=== PATIENT | male | born 1995 | race Caucasian/White ===

== ENCOUNTER 2024-03-08 07:06 | Emergency (ER) | payer BC, SELFPAY ==
[2024-03-08] VITALS (33 sets, daily range): BP systolic 110–127; BP diastolic 53–74; PULSE 43–108; RESP 11–20; TEMP 36.6; O2SAT 97–100
--- NOTE | 2024-03-08 | ECHO_ITS ---
Patient Info Name: José Kidd Age: 28 years : 1995 Gender: Male Ht: 63 in Wt: 240 lbs BSA: 2.26 m2 HR: 83 bpm BP: 99 / 62 mmHg Heart Rhythm: Bradycardia Technical Quality: Good Exam Date: 03/08/2024 9:49 AM Exam Location: Echo Lab Patient Status: Emergency Admit Date: 03/08/2024 Staff Ordering Physician: Virginia Head MD Bonbon Dipper: Ted Wade RDCS Attending Provider: Virginia Head MD Referring Physician: Adilene ROBLES; Exam Type: CA echo doppler color flow Study Info Indications - BRADYCARDIA Complete two-dimensional, color flow and Doppler transthoracic echocardiogram is performed. Summary 1. Complete two-dimensional, color flow and Doppler transthoracic echocardiogram is performed. 2. Left ventricular chamber dimension is normal. 3. Left ventricular systolic function is normal, estimated at 60-65%. 4. The left ventricular diastolic function is normal. 5. E/e' 5 is not elevated. 6. Left atrial chamber dimension is mildly enlarged. 7. There is trace mitral valve regurgitation. 8. No pulmonary hypertension, estimated pulmonary arterial systolic pressure is 23 mmHg. 9. There is trace pulmonic regurgitation. Left Ventricle E/e' 5 is not elevated. Left ventricular chamber dimension is normal. Left ventricular systolic function is normal, estimated at 60-65%. The left ventricular diastolic function is normal. Right Ventricle Right ventricular systolic function is normal and with normal TAPSE 2.8 cm. Right ventricular chamber dimension is normal. Left Atria Left atrial chamber dimension is mildly enlarged. Right Atria Right atrial chamber dimension is normal. Aortic Valve The aortic valve is trileaflet. There is no aortic valve stenosis. There is no aortic valve regurgitation. Pulmonic Valve There is trace pulmonic regurgitation. Mitral Valve There is no mitral valve stenosis. There is trace mitral valve regurgitation. Tricuspid Valve There is no tricuspid valve regurgitation. No pulmonary hypertension, estimated pulmonary arterial systolic pressure is 23 mmHg. Pericardium/Pleural There is no pericardial effusion. Inferior Vena Cava Normal inferior vena cava with >50% collapse upon inspiration consistent with normal right atrial pressure, 5 mmHg. Aorta The aortic root size at the sinus of Valsalva is normal. Left Ventricular Outflow Tract Name Value Normal LVOT 2D LVOT Diameter 2.1 cm LVOT Doppler LVOT Peak Gradient 7 mmHg LVOT Mean Gradient 4 mmHg LVOT VTI 31 cm LVOT VTI/AV VTI Ratio 0.9 LVOT Stroke Volume 108 ml LVOT CO 7.0 l/min LVOT CI 3.1 l/min/m2 Mitral Valve Name Value Normal MV Doppler MV Decel [place] 388 cm/s2 MV PHT
--- NOTE | ~2024-03-08 | XR_ITS ---
EXAMINATION: XR chest 2V DATE: 03/08/2024 07:31 INDICATION: Syncope. Seizure like activity. TECHNIQUE: AP and lateral views of the chest were obtained. COMPARISON: None FINDINGS: The lungs are clear with no focal airspace opacities, pulmonary edema, pleural effusion or pneumothor ax. The cardiomediastinal silhouette is normal. Visualized bones and soft tissues are unremarkable. IMPRESSION: 1. Normal chest radiograph. Reviewed, dictated and finalized at location A. IMPRESSION: 1. Normal chest radiograph.
--- NOTE | 2024-03-08 07:11 | ECG_ITS ---
Test Date: 2024-03-08 07:18:30 Measurements Intervals [place] Rate: 44 P: 62 SC: 190 QRS: 62 QRSD: 104 T: 57 QT: 447 QTc: 383 Interpretive Statements SINUS BRADYCARDIA WITH MARKED SINUS ARRHYTHMIA POSSIBLE LEFT ATRIAL ENLARGEMENT [-0.1mV P-WAVE IN V1/V2] No previous ECG available for comparison Electronically Signed On 03-08-2024 13:39:33 CDT by Laurie Estrada M.D.
[2024-03-08 07:17] LABS: Basophils Percent Auto 0.4 % (0.2-1.2); Eosinophils Absolute Auto 0.2 K/mm3 (0-0.3); Eosinophils Percent Auto 2.4 % (0-4.4); Hematocrit 44.1 % (42.0-52.0); Hemoglobin 14.3 g/dL (14.0-18.0); Immature Granulocyte Absolute 0.02 K/mm3 (0.00-0.031); Immature Granulocyte Percent A 0.2 % (0-0.5); Lymphocytes Percent Auto 24.3 % (18.3-44.2); Mean Corpuscular HGB Conc 32.4 g/dl (32-36); Mean Corpuscular Volume 92.5 fl (80-100); Mean Platelet Volume 9.1 fl (7.4-10.4); Monocytes Absolute Auto 0.9 K/mm3 (0.1-0.6); Monocytes Percent Auto 11.2 % (2.6-8.5); Neutrophils Absolute Auto 5.1 K/mm3 (1.3-6.7); Neutrophils Percent Auto 61.5 % (45.5-73.1); Platelet Count Result 304 k/mm3 (150-375); Red Blood Count 4.77 M/mm3 (4.6-6.20); Red Cell Distribution Width 12.2 % (11.5-14.5); White Blood Count 8.2 K/mm3 (4.5-10.0)
--- NOTE | 2024-03-08 07:19 | ED.SYNCOPE ---
HPI - Syncope General Chief Complaint: Syncope Stated Complaint: syncopy Time Seen by Provider: 03/08/24 07:19 Source: patient and family (mother and father) Mode of arrival: ambulatory Limitations: no limitations History of Present Illness HPI narrative: Patient presents with report of loss of conscioussness and muscle tone. He did exhibit some jerking muscle movement but family state it didn't look like a seizure. No history of seizure. A prior episode of passing out 10 years ago. History of bradycardia for which he previousy saw Dr Tuttle and now has an upcoming appointment to establish with a new industrial chemist but not for several months. He had previously been told about 3 years ago that he might require a pacemaker at some point. Does not believe he has ever had an echo. Had previously had a loop recorder s/p removal. Today, he was complaining of heal pain and his father, who has hx of Achilles tear, was having him perform some range of motion exercises. He began to feel unwell, dizzy, nauseated and cold and sat at the table where they report he was pale, cool, diaphoretic. He felt like my heart rate or blood pressure was dropping. After the episode, it took him about 60 seconds to wake up but he awoke and was back at baseline. No nausea now. No tongue trauma. No incontinence of bowel/bladder. No chest pain, shortness of breath. Related Data Home Medications Medication Instructions Recorded Confirmed No Home Medications 07/27/20 07/27/20 Allergies Allergy/AdvReac Type Severity Reaction Status Date / Time No Known Allergies Allergy Verified 07/27/20 16:24 [facility] Past Medical History Medical History Bradycardia Family History Family History Mother Family history of migraine headaches Hypertension Family history of kidney disease Father Achilles tendon tear Social History Social History Smoking status: Never smoker Second hand tobacco smoke exposure: No Alcohol intake: current Exam Narrative: GENERAL: Well-appearing, well-nourished, and in no acute distress. HEAD: Normocephalic, atraumatic. EYES: Non injected, non icteric ENT: Nares clear, no rhinorrhea or epistaxis. No tongue trauma. NECK: Supple. CHEST: Speaking in full sentences. No respiratory distress. Lungs CTAB without crackles or wheezes HEART: Regular rate and rhythm. Normal S1 and S2 without appreciable murmur. can not elucidate a murmur with Valsalva maneuver. ABDOMEN: Soft, nondistended. EXTREMITIES: Normal range of motion. No lower extremity edema. SKIN: Warm, dry, no rash. NEURO: No focal deficits. Alert and oriented x3. PSYCH: Normal mood and affect. Course Vital Signs Vital signs: Vital Signs Temperature 97.9 F 03/08/24 07:03 Pulse Rate 52 L 03/08/24 07:03 Respiratory Rate 12 03/08/24 07:03 Blood Pressure 121/58 L 03/08/24 07:03 Pulse Oximetry 100 03/08/24 07:03 Oxygen Delivery Room Air 03/08/24 07:03 Temperature 97.9 F 03/08/24 07:03 Pulse Rate 43 L 03/08/24 14:31 Respiratory Rate 16 03/08/24 14:31 Blood Pressure 121/57 L 03/08/24 14:31 Pulse Oximetry 100 03/08/24 14:31 Oxygen Delivery Room Air 03/08/24 07:16 MDM - Syncope MDM Narrative Medical decision making narrative: Patient presents after reportedly losing muscle tone and consciousness. Family describes some muscular movements during the episode but they state it did not appear to be a seizure. No incontinence or tongue trauma and patient returned to baseline after approximately 60 seconds. For this reason, the episode favors syncope over seizure. In the ED he is afebrile with vital signs with bradycardia. Mildly low diastolic BP. Patient's BUN is 23 and creatinine 1.7. No prior for comparison but, assuming relatively normal baseline sta
[2024-03-08 07:39] LABS: Alanine Aminotransferase 16 U/L (6-50); Albumin Level 4.4 g/dL (3.5-5.1); Alkaline Phosphatase 50 U/L (38-126); Anion Gap 10 mmol/L (4-12); Aspartate Amino Transferase 25 U/L (17-59); Bilirubin,Total 0.7 mg/dL (0.2-1.3); Blood Urea Nitrogen 23 mg/dL (9-20); Calcium 9.2 mg/dL (8.4-10.2); Carbon Dioxide 26 mmol/L (22-30); Chloride 102 mmol/L (98-107); Estimated CRCL calculation 78 ml/min; Estimated Glomerular Filt Rate 48; Glucose 122 mg/dL (65-110); Sodium 138 mmol/L (137-145)
[2024-03-08] MEDS: LACTATED RINGERS 1,000 ML 999 ML IV CONT (08:16)
[2024-03-08 08:21] LABS: NT Pro B Type Natriuretic Pept < 20 pg/mL (19.9-100)
[2024-03-08 08:42] LABS: Amphetamine Screen Urine Negative (Negative); Barbiturate Screen Urine Negative (Negative); Benzodiazepines Screen Urine Negative (Negative); Cannabinoid Screen Urine Negative (Negative); Cocaine Screen Urine Negative (Negative); Methadone Screen Urine Negative (Negative); Opiate Screen Urine Negative (Negative); Phencyclidine Screen Urine Negative (Negative)
[2024-03-08 08:51] LABS: D Dimer < 0.27 ug/mL (<0.48)
[2024-03-08 08:56] LABS: Troponin I < 0.012 ng/mL (0.000-0.034)
[2024-03-08 09:34] LABS: Anion Gap 11 mmol/L (4-12); Blood Urea Nitrogen 22 mg/dL (9-20); Calcium 9.2 mg/dL (8.4-10.2); Carbon Dioxide 25 mmol/L (22-30); Chloride 103 mmol/L (98-107); Estimated CRCL calculation 83 ml/min; Estimated Glomerular Filt Rate 51; Glucose 124 mg/dL (65-110); Sodium 139 mmol/L (137-145)
--- NOTE | 2024-03-08 09:36 | PC.NURSE ---
US at bedside
[2024-03-08 10:38] LABS: Anion Gap 8 mmol/L (4-12); Blood Urea Nitrogen 19 mg/dL (9-20); Calcium 9.1 mg/dL (8.4-10.2); Carbon Dioxide 25 mmol/L (22-30); Chloride 105 mmol/L (98-107); Estimated CRCL calculation 94 ml/min; Estimated Glomerular Filt Rate 60; Glucose 104 mg/dL (65-110); Potassium 4.3 mmol/L (3.4-5.0); Sodium 138 mmol/L (137-145)
[2024-03-08] MEDS: SODIUM CHLORIDE 0.9% IV 1,000 ML 999 ML IV CONT (13:45)
== END 2024-03-08 14:40 | disposition home or self-care (01) ==
PROVIDERS: Emergency Provider Student in an Organized Health Care Education/Training Program; PCP Family Medicine
DX: I95.1 Orthostatic hypotension (principal); N17.9 Acute kidney failure, unspecified; R00.1 Bradycardia, unspecified; R94.31 Abnormal electrocardiogram [ECG] [EKG]
CPT/HCPCS: 36415; 71046; 80048; 80053; 80307; 83880; 84484; 85025; 85380; 93005; 93306; 96360; 96361; 99284; J7030; J7120